=== PATIENT | female | born 1950 ===

== ENCOUNTER 2017-10-30 14:19 | Emergency (ER) | payer MEDICARE, OTHER ==
[2017-10-30] MEDS ORDERED: Sodium Chloride 0.9% 1,000 ML IV STA (14:58)
--- NOTE | 2017-10-30 15:21 | ED PDOC ---
HPI: General Adult Time Seen by Provider: 10/30/17 14:33 Chief Complaint (Nursing): Back Pain Chief Complaint (Provider): Back pain History Per: Patient History/Exam Limitations: no limitations Onset/Duration Of Symptoms: Days (years) Additional Complaint(s): Pt. with diffuse back pain. Not new pain. Ongoing for years. No numbness, tingles. Pain in legs b/l diffusely that is ongoing for years. No new pain today. Pt. with 3 days of cough, nasal congestion, sore throat. No chest pain , dyspnea. No weakness, dysuria, headaches, dizziness, neck pain. No arm pain. Feels chills. No fever checked at home. Also noted sugar was lower at home then usual but she has not been eating much. Past Medical History Reviewed: Historical Data, Nursing Documentation, Vital Signs Vital Signs: Last Vital Signs Temp 97 F L 10/30/17 14:22 Pulse 85 10/30/17 14:22 Resp 18 10/30/17 14:22 BP 138/78 10/30/17 14:22 Pulse Ox 100 10/30/17 15:54 - Medical History PMH: Asthma, Diabetes, HTN, Hypercholesterolemia, Hypothyroidism - Surgical History Surgical History: Cholecystectomy - Family History Family History: States: Unknown Family Hx - Living Arrangements Living Arrangements: With Family - Social History Alcohol: None Drugs: Denies - Home Medications Home Medications: Ambulatory Orders Medication Instructions Recorded Sulfamethoxazole/Trimethoprim 1 tab PO BID #20 tab 03/22/16 [Bactrim DS 800 mg-160 mg] Naproxen 500 mg PO Q6 #30 tab 11/08/16 Ondansetron [Zofran] 4 mg PO Q8H #12 tab 11/08/16 Benzonatate [Tessalon Perles] 100 mg PO BID PRN 5 Days sgl 10/30/17 Ibuprofen [Motrin] 600 mg PO TID 7 Days tab 10/30/17 - Allergies Allergies/Adverse Reactions: Allergies Allergy/AdvReac Type Severity Reaction Status Date / Time No Known Allergies Allergy Verified 10/30/17 14:26 Review of Systems ROS Statement: Except As Marked, All Systems Reviewed And Found Negative Constitutional: Positive for: Fever, Chills ENT: Positive for: Nose Pain, Nose Discharge, Nose Congestion, Throat Pain Respiratory: Positive for: Cough Musculoskeletal: Positive for: Back Pain, Leg Pain Neurological: Positive for: Weakness Physical Exam - Reviewed Nursing Documentation Reviewed: Yes Vital Signs Reviewed: Yes - Physical Exam Appears: Positive for: Non-toxic, No Acute Distress Head Exam: Positive for: ATRAUMATIC, NORMAL INSPECTION, NORMOCEPHALIC Skin: Positive for: Normal Color, Warm, DRY Eye Exam: Positive for: EOMI, Normal appearance, PERRL ENT: Positive for: Nasal Congestion. Negative for: Pharyngeal Erythema, Tonsillar Exudate Neck: Positive for: Normal, Painless ROM, Supple Cardiovascular/Chest: Positive for: Regular Rate, Rhythm Respiratory: Positive for: Decreased Breath Sounds. Negative for: Accessory Muscle Use, Wheezing Gastrointestinal/Abdominal: Positive for: Normal Exam, Bowel Sounds, Soft. Negative for: Tenderness Back: Positive for: Normal Inspection. Negative for: L CVA Tenderness, R CVA Tenderness Extremity: Positive for: Normal ROM. Negative for: Tenderness, Pedal Edema Neurologic/Psych: Positive for: Alert, scientific research associate II-XII, Oriented. Negative for: Motor/Sensory Deficits, Facial Droop - Laboratory Results Result Diagrams: 10/30/17 15:41 10/30/17 17:24 Interpretation Of Abn Labs: no acute - ECG ECG: Positive for: Interpreted By Me, Viewed By Me ECG Rhythm: Positive for: Normal QRS, Normal ST Segment, Sinus Rhythm O2 Sat by Pulse Oximetry: 100 Pulse Ox Interpretation: Normal - Radiology X-Ray: Read By Radiologist X-Ray Interpretation: No Acute Disease - Progress ED Course And Treament: 1802: Stable. AAOx3. Pain free. Tolerated Po. No dyspnea. Disposition - Clinical Impression Clinical Impression: URI (upper respiratory infection), Chronic back pain - Patient ED Disposition Is Patient to be Admitted: No Counseled Patient/Family Regarding: Studies Performed, Diagnosis, Need For Followup, Rx Given - Disposition Referrals: [facility] [Outside] - 10/31/17 Disposition: Routine/Home Disposition Time: 18:05 Condition: STABLE Additional Instructions: Return if not better in 3 days. Prescriptions: Benzonatate [Tessalon Perles] 100 mg PO BID PRN 5 Days sgl PRN Reason: Cough Ibuprofen [Motrin] 600 mg PO TID 7 Days tab Instructions: Viral Upper Respiratory Infection, Adult (DC), Chronic Pain Forms: [employer] (Yoruba) Print Language: CROATIAN
[2017-10-30 15:58] LABS: BASO % 0.9 % (0.0-2.0); EOS # 1.1 K/uL (0.0-0.7); EOS % 20.1 % (0.0-4.0); HEMOGLOBIN 12.5 g/dL (12.0-16.0); LYMPH # 1.5 K/uL (1.0-4.3); MEAN CELL VOLUME 91.3 fl (81.0-99.0); MEAN CORPUSCULAR HEMOGLOBIN 30.6 pg (27.0-31.0); MEAN CORPUSCULAR HGB CONC 33.5 g/dL (33.0-37.0); MEAN PLATELET VOLUME 10.1 fl (7.2-11.7); MONO # 0.5 K/uL (0.0-0.8); MONO % 9.5 % (0.0-10.0); NEUT # 2.2 K/uL (1.8-7.0); NEUT % 40.5 % (50.0-75.0); NRBC % 0.1 % (0.0-0.0); PLATELET COUNT 214 K/uL (130-400); RBC 4.09 Mil/uL (3.80-5.20); RED CELL DISTRIBUTION WIDTH 13.9 % (11.5-14.5); WHITE BLOOD COUNT 5.3 K/uL (4.8-10.8)
[2017-10-30 16:36] LABS: BANDS 1 % (0-2); EOSINOPHIL 19 % (0-7); LYMPHOCYTE 27 % (20-50); MONOCYTE 10 % (0-10); NEUTROPHIL 43 % (42-75); PLATELET ESTIMATE NORMAL (NORMAL); TOTAL CELLS COUNTED 100
[2017-10-30 16:50] LABS: B-TYPE NATRIURETIC PEPTIDE 91.1 pg/ml (0-900)
[2017-10-30 17:42] LABS: ALB/GLOB RATIO 1.2 (1.0-2.1); ALBUMIN 3.7 g/dL (3.5-5.0); ALT/SGPT 50 U/L (9-52); AST/SGOT 31 U/L (14-36); BLOOD UREA NITROGEN 18 mg/dl (7-17); CALCIUM 8.4 mg/dL (8.4-10.2); GFR AFRICAN-AMERICAN > 60; GFR NON-AFRICAN AMERICAN > 60
--- NOTE | 2017-10-30 17:46 | RAD ---
HISTORY: cough COMPARISON: No prior. FINDINGS: LUNGS: No active pulmonary disease. PLEURA: No significant pleural effusion identified, no pneumothorax apparent. CARDIOVASCULAR: Prominent is cardiac silhouette is appreciated either intrinsically enlarged or technically magnified. Frontal technique limits the evaluation the cardiac size. No pulmonary vascular derangement appreciated. OSSEOUS STRUCTURES: No significant abnormalities. VISUALIZED UPPER ABDOMEN: Normal. OTHER FINDINGS: None. IMPRESSION: No acute pulmonary disease appreciable. Prominent cardiac silhouette as discussed above.
[2017-10-30 18:18] VITALS: BP 132/74; PULSE 74; RESP 20; TEMP 97; O2SAT 99
[2017-10-30 18:21] LABS: PROTHROMBIN TIME 11.1 Seconds (9.8-13.1)
--- NOTE | 2017-10-31 19:13 | CARD ---
APPROVED REPORT EKG Measurement Heart [id number] <Conclusion> Normal sinus rhythm with sinus arrhythmia Normal ECG
== END 2017-10-30 18:27 | disposition home or self-care (01) ==
LOC: H.ER 14:19
DX: M54.9 Dorsalgia, unspecified (principal); J06.9 Acute upper respiratory infection, unspecified; E03.9 Hypothyroidism, unspecified; E11.9 Type 2 diabetes mellitus without complications; E78.00 Pure hypercholesterolemia, unspecified; G89.29 Other chronic pain; I10 Essential (primary) hypertension; J45.909 Unspecified asthma, uncomplicated
CPT/HCPCS: 71045; 80053; 82948; 83880; 84484; 85025; 85610; 85730; 87804; 93005; 96360; 99282; J7040